=== PATIENT | female | born 1995 | race Caucasian/White ===

== ENCOUNTER 2024-03-20 15:29 | Emergency (ER) | payer OTHER, SELFPAY ==
[2024-03-20 15:36] VITALS: BP 155/89; PULSE 81; TEMP 36.6; O2SAT 96; BMI 46.0
--- NOTE | 2024-03-20 15:52 | XR_ITS ---
The [address] [address] Patient Name: JOHN GTZ MRN: [id number] date: 1995 Sex: F Assigned Patient Location: ER Current Patient Location: ER Accession/Order Number: [id number] Exam Date: 03/20/2024 16:05 Report Date: 03/20/2024 17:49 At the request of: RENEA MCFADDEN Procedure: XR lumbar spine 2-3V EXAM: XR lumbar spine 2-3V HISTORY: The patient is a 29-year-old female, fall COMPARISON: None. 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 There is no radiographic evidence of fracture or loss of vertebral body height throughout the lumbar spine. There is no malalignment or disc space narrowing. XR/XR lumbar spine 2-3V IMPRESSION: Negative. Electronically authenticated by: WINSTON LI Date: 03/20/2024 17:49
--- NOTE | 2024-03-20 15:52 | XR_ITS ---
The [address] [address] Patient Name: JOHN GTZ MRN: [id number] date: 1995 Sex: F Assigned Patient Location: ER Current Patient Location: ER Accession/Order Number: [id number] Exam Date: 03/20/2024 16:05 Report Date: 03/20/2024 17:50 At the request of: RENEA MCFADDEN Procedure: XR cervical spine 2-3V EXAM: XR cervical spine 2-3V HISTORY: The patient is a 29-year-old female, fall COMPARISON: None. FINDINGS: The cervical spine is radiographically negative with no evidence of fracture, loss of vertebral body height, disc space narrowing, malalignment, or prevertebral soft tissue swelling. XR/XR cervical spine 2-3V IMPRESSION: Negative. Electronically authenticated by: WINSTON LI Date: 03/20/2024 17:50
--- NOTE | 2024-03-20 15:52 | XR_ITS ---
The [address] [address] Patient Name: JOHN GTZ MRN: [id number] date: 1995 Sex: F Assigned Patient Location: ER Current Patient Location: ED.MAIN Accession/Order Number: [id number] Exam Date: 03/20/2024 16:05 Report Date: 03/20/2024 17:46 At the request of: RENEA MCFADDEN Procedure: XR shoulder LT min 2V EXAM: XR shoulder LT min 2V HISTORY: The patient is a 29-year-old female, fall COMPARISON: None. FINDINGS: The left shoulder is radiographically negative with no evidence of fracture, dislocation, calcific tendonitis, or other osseous or articular abnormalities. The glenohumeral joint is maintained. The acromioclavicular joint is maintained. The subacromial space is maintained. XR/XR shoulder LT min 2V IMPRESSION: Negative. Electronically authenticated by: WINSTON LI Date: 03/20/2024 17:46
--- NOTE | 2024-03-20 15:52 | XR_ITS ---
The [address] [address] Patient Name: JOHN GTZ MRN: [id number] date: 1995 Sex: F Assigned Patient Location: ER Current Patient Location: ER Accession/Order Number: [id number] Exam Date: 03/20/2024 16:05 Report Date: 03/20/2024 17:48 At the request of: RENEA MCFADDEN Procedure: XR sacrum coccyx min 2V EXAM: XR sacrum coccyx min 2V HISTORY: The patient is a 29-year-old female, fall COMPARISON: None. XR/XR sacrum coccyx min 2V IMPRESSION: No displaced fractures are seen of the sacrum or coccyx. The sacroiliac joints are maintained. The pubic symphysis is maintained. Electronically authenticated by: WINSTON LI Date: 03/20/2024 17:48
--- NOTE | 2024-03-20 15:52 | XR_ITS ---
The [address] [address] Patient Name: JOHN GTZ MRN: [id number] date: 1995 Sex: F Assigned Patient Location: ER Current Patient Location: ER Accession/Order Number: [id number] Exam Date: 03/20/2024 16:05 Report Date: 03/20/2024 17:47 At the request of: RENEA MCFADDEN Procedure: XR elbow LT min 3V EXAM: XR elbow LT min 3V HISTORY: The patient is a 29-year-old female, fall COMPARISON: None. FINDINGS: The left elbow is radiographically negative with no evidence of fracture, dislocation, fat pad elevation, or other osseous or articular abnormalities. XR/XR elbow LT min 3V IMPRESSION: Negative. Electronically authenticated by: WINSTON LI Date: 03/20/2024 17:47
--- NOTE | 2024-03-20 15:53 | ED_ITS ---
HPI HPI - General Adult General Chief complaint: Back Pain/Injury Stated complaint: FALL ON 03/19/24; LOWER BACK PAIN Time Seen by Provider: 03/20/24 15:31 Source: patient Mode of arrival: walk-in Limitations: no limitations History of Present Illness HPI narrative: Patient is a 29-year-old female who presents to the emergency department for evaluation of pain in the low back and tailbone after a fall yesterday on wooden steps. Patient complains of pain and bruising over the low back. She has not had any medications prior to arrival. She is unsure of a possibility of . She complains of pain to the right side of the neck, left posterior shoulder, left elbow, low back and tailbone. She is ambulatory. No peripheral paresthesias or urinary/stool incontinence. Related Data Home Medications ?Medication ?Instructions ?Recorded ?Confirmed dextroamphetamine-amphetamine 20 10 mg PO .1pm 03/20/24 03/20/24 mg tablet dextroamphetamine-amphetamine ER 15 mg PO DAILY 03/20/24 03/20/24 15 mg 24hr capsule,extend release Previous Rx's ?Medication ?Instructions ?Recorded ketorolac 10 mg tablet 10 mg PO TID PRN pain #10 tabs 03/20/24 methocarbamol 750 mg tablet 750 mg PO TID PRN pain #20 tabs 03/20/24 Allergies Allergy/AdvReac Type Severity Reaction Status Date / Time Penicillins AdvReac Severe Swelling Verified 03/20/24 15:35 of Lip/Tongue/Throat latex AdvReac Mild Rash Verified 03/20/24 15:35 Opioid HPI Opioid Management Most Recent Opioid Data: Last Pain Scale 3 03/20/24 17:53 03/20/24 Last ED Pain Assessment 03/20/24 17:53 Last MAR Pain Assessment 03/20/24 16:33 Review of Systems ROS Constitutional Denies: fever or chills Ears, nose, mouth, and throat Denies: throat pain or nasal congestion Cardiovascular Denies: chest pain Respiratory Denies: shortness of breath Gastrointestinal Denies: nausea or vomiting Musculoskeletal Denies: back pain or neck pain Integumentary/Breast Denies: rash Neurological Denies: numbness in extremities or weakness in extremities Hematologic/Lymphatic Denies: easy bruising or easy bleeding Exam Narrative Exam Narrative: Gen.: Awake, alert, in no distress Head: Normocephalic, atraumatic ENT: Moist mucous membranes, no posterior midline cervical tenderness Respiratory: No respiratory distress Back: Diffuse tenderness of the lumbar spine and tailbone with ecchymosis noted over the inferior spine and left posterior hip Extremities: Small abrasion noted to the left posterior elbow with no bony point tenderness or obvious deformity. Diffuse tenderness of the left posterior shoulder with normal range of motion, patient is noted to be actively moving her left arm up over her head with no difficulty. Psych: Normal mood and affect Neuro: No focal neuro deficit Skin: Warm, dry, intact Constitutional Vital Signs, click to edit/add: Last Vital Signs Temp 97.9 F 03/20/24 15:36 Pulse 81 03/20/24 15:36 Resp 18 03/20/24 15:36 BP 155/89 H 03/20/24 15:36 Pulse Ox 96 03/20/24 15:36 O2 Del Method Room Air 03/20/24 15:36 Course Vital Signs Vital signs: Vital Signs Temperature 97.9 F 03/20/24 15:36 Pulse Rate 81 03/20/24 15:36 Respiratory Rate 18 03/20/24 15:36 Blood Pressure 155/89 H 03/20/24 15:36 Pulse Oximetry 96 03/20/24 15:36 Oxygen Delivery Method Room Air 03/20/24 15:36 Temperature 97.9 F 03/20/24 15:36 Pulse Rate 81 03/20/24 15:36 Respiratory Rate 18 03/20/24 15:36 Blood Pressure 155/89 H 03/20/24 15:36 Pulse Oximetry 96 03/20/24 15:36 Oxygen Delivery Method Room Air 03/20/24 15:36 Medical Decision Making MDM Narrative Medical decision making narrative: Patient was medicated for pain, she reports improvement. She is ambulatory in no distress. X-rays of the neck, shoulder, elbow, lumbar spine and sacrum and coccyx with no evidence of fracture or dislocation. Patient sent home with a short course of muscle relaxants, NSAIDs to follow-up with primary care. Return to the ER if symptoms change or worsen. test was obtained and negative prior to imaging or medications being given. SUPERVISED APC VISIT, PHYSICIAN ATTESTATION: Based on the medical record the care appears appropriate. ? Medical Records Medical records reviewed: Yes I reviewed the patient's medical records Lab Data Lab results reviewed: Yes I reviewed the patient's lab results Labs: Lab Results 03/20/24 Range/Units 15:50 Urine HCG, Qual Negative (NEGATIVE) Imaging Data XR cervical: Attestation: I have reviewed the pertinent imaging results. Radiologist's impression: ITS Impressions Cervical Spine X-Ray 03/20/24 15:52 IMPRESSION: Negative. Electronically authenticated by: WINSTON LI Date: 03/20/2024 17:50 Elbow X-Ray 03/20/24 15:52 IMPRESSION: Negative. Electronically authenticated by: WINSTON LI Date: 03/20/2024 17:47 Lumbar Spine X-Ray 03/20/24 15:52 IMPRESSION: Negative. Electronically authenticated by: WINSTON LI Date: 03/20/2024 17:49 Sacrum and Coccyx X-Ray 03/20/24 15:52 IMPRESSION: No displaced fractures are seen of the sacrum or coccyx. The sacroiliac joints are maintained. The pubic symphysis is maintained. Electronically authenticated by: WINSTON LI Date: 03/20/2024 17:48 Shoulder X-Ray 03/20/24 15:52 IMPRESSION: Negative. Electronically authenticated by: WINSTON LI Date: 03/20/2024 17:46 Discharge Plan Discharge Chief Complaint: Back Pain/Injury Clinical Impression: Fall, Low back pain, Contusion of left upper extremity, Lumbar contusion Patient Disposition: Home, Self-Care Time of Disposition Decision: 17:56 Condition: Good Prescriptions / Home Meds: New ketorolac 10 mg tablet 10 mg PO TID PRN (Reason: pain) Qty: 10 0RF methocarbamol 750 mg tablet 750 mg PO TID PRN (Reason: pain) Qty: 20 0RF No Action dextroamphetamine-amphetamine 15 mg capsule,extended release 24hr 15 mg PO DAILY dextroamphetamine-amphetamine 20 mg tablet 10 mg PO .1pm Print Language: Senegalese Instructions: Acute Low Back Pain (ED), Contusion in Adults (ED) Referrals: Mary Vidal NP [Primary Care Provider] - 1 week
[2024-03-20 16:00] LABS: HCG Qualitative Urine* NEGATIVE (NEGATIVE); Internal Control Within Normal Limits
[2024-03-20] MEDS: HYDROCODONE/ACET 5-325 MG TABLET 1 TAB PO (16:33)
[2024-03-20] MEDS: KETOROLAC TROMETHAMINE 60 MG/2 ML VIAL IM (16:33)
[2024-03-20] MEDS: ORPHENADRINE 60 MG/ 2 ML VIAL IM (16:33)
[2024-03-20 17:56] VITALS: O2SAT 99
[2024-03-20 17:59] VITALS: BP 112/89; PULSE 85; O2SAT 99
== END 2024-03-20 18:00 | disposition home or self-care (01) ==
PROVIDERS: Physician Assistant; Emergency Provider Emergency Medicine; PCP Nurse Practitioner Family
DX: S30.0XXA Contusion of lower back and pelvis, initial encounter (principal); S40.022A Contusion of left upper arm, initial encounter; W10.8XXA Fall (on) (from) other stairs and steps, initial encounter; M54.2 Cervicalgia
CPT/HCPCS: 72040; 72100; 72220; 73030; 73080; 84703; 96372; 99285; J1885; J2360

== ENCOUNTER 2024-07-31 12:53 | Outpatient (REF) | payer OTHER, SELFPAY ==
[2024-08-02 16:13] LABS: Age Gdln ACOG Testing Note (.); IGP, rfx Aptima HPV ASCU Note (.)
== END 2024-07-31 12:54 | disposition home or self-care (01) ==
LOC: LAB 12:53
PROVIDERS: PCP Nurse Practitioner Family; Visit Provider Obstetrics & Gynecology
DX: Z01.419 Encounter for gynecological examination (general) (routine) without abnormal findings (principal)
CPT/HCPCS: 88175